=== PATIENT | female | born 1965 | race African-American/Black ===

== ENCOUNTER → 2018-05-29 | Outpatient (CLI) | payer OTHER ==
[~2018-05-29] MED LIST: IOVERSOL 350 MG/ML 150 ML VIAL ONE; SODIUM CHLORIDE 0.9% 100 ML ONE
== END | disposition home or self-care (01) ==
LOC: RADMN 08:46
PROVIDERS: ATTEND Internal Medicine Cardiovascular Disease
DX: J84.10 Pulmonary fibrosis, unspecified (principal); I26.99 Other pulmonary embolism without acute cor pulmonale; I20.8 Other forms of angina pectoris
CPT/HCPCS: 71275; J7050; Q9967